=== PATIENT | male | born 1985 | race Caucasian/White ===

== ENCOUNTER 2023-09-26 01:18 | Emergency (ER) | payer BC, SELFPAY ==
[2023-09-26] VITALS (21 sets, daily range): BP systolic 117–149; BP diastolic 77–91; PULSE 69–98; RESP 9–24; TEMP 36.4–37.1; O2SAT 96–100
--- NOTE | ~2023-09-26 | CT_ITS ---
CT of the Abdomen and Pelvis: Indication: Abdominal pain Technique: 2.5 mm axial scans were obtained through the abdomen and pelvis following intravenous adm inistration of 100 cc of Omnipaque 350. Dose reduction technique was used on this scan by utilizing a utomated exposure control and iterative reconstruction technique. The dose-length product (DLP) was 1 246.12 mGy-cm. Findings: Scans through the lung bases are unremarkable. The liver, spleen, pancreas, adrenals and kidneys are within normal limits. Small gallstone present t he gallbladder neck. Possible mild gallbladder wall thickening. No evidence of aortic aneurysm. No l ymphadenopathy. No bowel obstruction or bowel wall thickening. There is no evidence to suggest acute appendicitis. Images through the pelvis were performed. Urinary bladder unremarkable. Prostate gland and seminal ve sicles are unremarkable. No ascites. Impression: Cholelithiasis, with gallstone at the gallbladder neck. Possible mild gallbladder wall thickening, wh ich raises the possibility of superimposed acute cholecystitis. Correlate clinically. Consider HIDA s can as indicated. Reviewed, dictated and finalized at location [facility] Impression: Cholelithiasis, with gallstone at the gallbladder neck. Possible mild gallbladd er wall thickening, which raises the possibility of superimposed acute cholecys titis. Correlate clinically. Consider HIDA scan as indicated.
--- NOTE | ~2023-09-26 | NM_ITS ---
EXAMINATION: NM hepatobiliary wo pharm DATE: 09/26/2023 11:46 INDICATION: Acute cholecystitis COMPARISON: CT dated 09/26/2023 TECHNIQUE: 5.1 mCi Tc-99m mebrofenin (Choletec) was administered intravenously. Scintigraphic images of the abdomen were obtained for one hour. Additional frontal and lateral scintigrams were obtained at 1 hours and 20 minutes and at 2 hours and 30 minutes. FINDINGS: There is normal clearance of radiotracer from the blood pool. There is homogeneous tracer u ptake by the liver. Activity progresses to the bowel and gallbladder. The vast majority of the activ ity bypasses the gallbladder with only minimal activity in the gallbladder and initial 60 minutes, sl owly increasing on the subsequent images there is reflux of activity into the stomach. IMPRESSION: 1. Slow accumulation of small amount of activity in the gallbladder. Given the findings on prior CT with subtle haziness to the pericholecystic fat and gallstone at the neck of the gallbladder this sug gests possibility of acute cholecystitis related to either a previously obstructing or partially obst ructing gallstone. Reviewed, dictated and finalized at location [facility] IMPRESSION: 1. Slow accumulation of small amount of activity in the gallbladder. Given the findings on prior CT with subtle haziness to the pericholecystic fat and galls tone at the neck of the gallbladder this suggests possibility of acute cholecys titis related to either a previously obstructing or partially obstructing galls tone.
[2023-09-26 02:11] LABS: Basophils Absolute Auto 0.1 K/mm3 (0.0-0.1); Basophils Percent Auto 0.3 % (0.2-1.2); Eosinophils Percent Auto 0.1 % (0-4.4); Hematocrit 45.9 % (42.0-52.0); Hemoglobin 15.4 g/dL (14.0-18.0); Immature Granulocyte Absolute 0.09 K/mm3 (0.00-0.031); Immature Granulocyte Percent A 0.6 % (0-0.5); Lymphocytes Absolute Auto 1.16 K/mm3 (0.9-3.2); Lymphocytes Percent Auto 7.4 % (18.3-44.2); Mean Corpuscular HGB Conc 33.6 g/dl (32-36); Mean Corpuscular Hemoglobin 29.6 pg (26-34); Mean Corpuscular Volume 88.1 fl (80-100); Mean Platelet Volume 9.6 fl (7.4-10.4); Monocytes Absolute Auto 0.6 K/mm3 (0.1-0.6); Monocytes Percent Auto 3.6 % (2.6-8.5); Neutrophils Absolute Auto 13.8 K/mm3 (1.3-6.7); Platelet Count Result 209 k/mm3 (150-375); Red Blood Count 5.21 M/mm3 (4.6-6.20); Red Cell Distribution Width 12.7 % (11.5-14.5); White Blood Count 15.7 K/mm3 (4.5-10.0)
[2023-09-26 02:36] LABS: Alanine Aminotransferase 38 U/L (6-50); Albumin Level 4.6 g/dL (3.5-5.1); Alkaline Phosphatase 89 U/L (38-126); Anion Gap 11 mmol/L (8-16); Aspartate Amino Transferase 36 U/L (17-59); Bilirubin,Total 0.9 mg/dL (0.2-1.3); Blood Urea Nitrogen 13 mg/dL (9-20); Calcium 9.1 mg/dL (8.4-10.2); Carbon Dioxide 26 mmol/L (22-30); Chloride 95 mmol/L (98-107); Estimated CRCL calculation 107 ml/min; Estimated Glomerular Filt Rate > 60; Glucose 132 mg/dL (65-110); Lipase 68 U/L (23-300); Potassium 3.5 mmol/L (3.4-5.0); Sodium 132 mmol/L (137-145)
[2023-09-26] MEDS: SODIUM CHLORIDE 0.9% IV 1,000 ML 999 ML IV CONT (02:41)
--- NOTE | 2023-09-26 02:49 | ED.ABDPAIN ---
HPI - Abdominal Pain General Chief Complaint: Abdominal Pain <Sammie Bingham MD - Last Filed: 10/02/23 17:08> Stated Complaint: abd pain <Sammie Bingham MD - Last Filed: 10/02/23 17:08> Time Seen by Provider: 09/26/23 01:49 <Sammie Bingham MD - Last Filed: 10/02/23 17:08> History of Present Illness HPI narrative: Patient is a 38-year-old male presenting with abdominal pain. Patient states that it started about 7-8 hours ago. Located in his epigastrium sometimes going into his right flank. He thought it was initially gas but the pain has not improved despite having a normal bowel movement in taking Gas-X. No nausea or vomiting. No diarrhea. No dysuria or hematuria. No chest pain or shortness of breath. No further complaints. <Sammie Bingham MD - Last Filed: 10/02/23 17:08> Related Data Allergies/Adverse Reactions: Allergies Allergy/AdvReac Type Severity Reaction Status Date / Time No Known Allergies Allergy Verified 09/26/23 01:23 <Sammie Bingham MD - Last Filed: 10/02/23 17:08> Review of Systems Review of Systems: All systems reviewed & are unremarkable except as noted in HPI and below <Sammie Bingham MD - Last Filed: 10/02/23 17:08> Exam Narrative: GENERAL: Well-appearing and in no acute distress. HEAD: Normocephalic, atraumatic. EYES: PERRLA and EOMI. ENT: Grossly unremarkable NECK: Supple. CHEST: No respiratory distress. HEART: Regular rate and rhythm ABDOMEN: Soft, +tenderness in epigastrium, no guarding or rebound EXTREMITIES: Normal range of motion. SKIN: Warm, dry, no rash. NEURO: Alert and oriented x3. PSYCH: Normal mood and affect. <Sammie Bingham MD - Last Filed: 10/02/23 17:08> Course Reevaluation(s) Reevaluation #1: 38-year-old male presenting to the ED for evaluation of right upper quadrant pain. Patient reports the pain lasted from 8:00 p.m. until 4:00 a.m.. Patient denies any prior history of gallbladder disease. At time of sign-out HIDA scan was pending. Initial CT scan was concerning for acute cholecystitis and HIDA scan was also concerned about acute cholecystitis. Patient has normal T bili AST ALT and alk-phos but patient does have a leukocytosis of 15.7. On re-examination patient has no tenderness to palpation. I discussed the case with surgery (Dr Shaikh) and they were comfortable admitting the patient but patient prefers to be discharged to home. Patient was started on Cipro and provided additional medication for pain control. Patient was updated on reasons to return to the emergency department. All questions and concerns were addressed. <Yaw Ryan MD - Last Filed: 09/26/23 17:36> Vital Signs Vital signs: Vital Signs Temperature 98.7 F 09/26/23 01:21 Pulse Rate 92 09/26/23 01:21 Respiratory Rate 20 09/26/23 01:21 Blood Pressure 149/91 H 09/26/23 01:21 Pulse Oximetry 99 09/26/23 01:21 Oxygen Delivery Room Air 09/26/23 01:21 Temperature 97.5 F L 09/26/23 01:43 Pulse Rate 94 09/26/23 12:23 Respiratory Rate 15 09/26/23 12:23 Blood Pressure 133/85 09/26/23 12:23 Pulse Oximetry 98 09/26/23 12:23 Oxygen Delivery Room Air 09/26/23 01:21 <Sammie Bingham MD - Last Filed: 10/02/23 17:08> Vital Signs Temperature 98.7 F 09/26/23 01:21 Pulse Rate 92 09/26/23 01:21 Respiratory Rate 20 09/26/23 01:21 Blood Pressure 149/91 H 09/26/23 01:21 Pulse Oximetry 99 09/26/23 01:21 Oxygen Delivery Room Air 09/26/23 01:21 Temperature 97.5 F L 09/26/23 01:43 Pulse Rate 94 09/26/23 12:23 Respiratory Rate 15 09/26/23 12:23 Blood Pressure 133/85 09/26/23 12:23 Pulse Oximetry 98 09/26/23 12:23 Oxygen Delivery Room Air 09/26/23 01:21 <Yaw Ryan MD - Last Filed: 09/26/23 17:36> MDM - Abdominal Pain MDM Narrative Medical decision making narrative: 38-year-old male presenting wit
[2023-09-26 03:56] LABS: Appearance Urine Clear (Clear); Bilirubin Urine Negative (Negative); Blood Urine Negative (Negative); Color Urine Yellow (Yellow); Glucose Urine UA Negative (Negative); Ketones Urine Trace mg/dL (Negative); Leukocyte Esterase Ur Negative LEU/UL (Negative); Nitrate Urine Negative (Negative); Protein Urine Trace mg/dL (Negative); pH Urine 6.5 (5.0-9.0)
[2023-09-26 03:57] LABS: Bacteria Urine None Seen /hpf; Non Pathogenic Casts 0-2; RBC Urine 0-2 /hpf (0-2); Squamous Epithelial Cell Urine None seen /hpf (Few); WBC Urine 0-5 /hpf
[2023-09-26 03:58] LABS: Specific Grav Ur 1.046 (1.001-1.035)
[2023-09-26 04:05] LABS: Add Urine Microscopic? YES
[2023-09-26] MEDS: CIPROFLOXACIN 500 MG TAB PO (12:22)
== END 2023-09-26 12:34 | disposition home or self-care (01) ==
PROVIDERS: Emergency Provider Emergency Medicine
DX: K80.00 Calculus of gallbladder with acute cholecystitis without obstruction (principal)
CPT/HCPCS: 36415; 74177; 78226; 80053; 81001; 83690; 85025; 96360; 99284; A9270; A9537; J7030; Q9967